=== PATIENT | male | born 1975 | race Caucasian/White ===

== ENCOUNTER → 2019-12-21 | Outpatient (CLI) | payer OTHER, SELFPAY | END | disposition home or self-care (01) | LOC: LABSPEC 10:03 | PROVIDERS: PCP Physician Assistant; Referring Provider Nurse Practitioner Family; Visit Provider Nurse Practitioner Family | DX: R05 Cough (principal); R50.9 Fever, unspecified; R53.83 Other fatigue; M79.10 Myalgia, unspecified site; Z20.828 Contact with and (suspected) exposure to other viral communicable diseases | CPT/HCPCS: 87635; 87804; 94799; G2023; U0004 ==

== ENCOUNTER → 2019-12-23 15:48 | Outpatient (CLI) | payer OTHER, SELFPAY ==
[2014-02-22 08:21] VITALS: BMI 29.4
--- NOTE | 2019-12-23 15:51 | RAD_ITS ---
STUDY: X-RAY CHEST REASON FOR EXAM: Male, 44 years old. Fatigue -- temp, went away 2 days ago -- cough x 3 days -- sob on exertion TECHNIQUE: PA and lateral views of the chest. COMPARISON: None. FINDINGS: Cardiac silhouette unremarkable. Pulmonary vascularity unremarkable. Aorta unremarkable. Right upper lobe consolidation. No pleural effusions. Upper abdomen unremarkable. Osseous structures intact. No pneumothorax. RAD/Chest PA and Lateral IMPRESSION: Right upper lobe pneumonia. Electronically Signed: Misha Sawyer, at 17:04 EDT Tel , Service support ,
== END ==
PROVIDERS: PCP Physician Assistant; Referring Provider Physician Assistant; Visit Provider Physician Assistant
DX: J18.9 Pneumonia, unspecified organism (principal)
CPT/HCPCS: 71046

== ENCOUNTER → 2021-06-23 | Outpatient (CLI) | payer BC, SELFPAY | END | disposition home or self-care (01) | LOC: LABSPEC 11:18 | PROVIDERS: PCP Physician Assistant; Referring Provider Physician Assistant Surgical; Visit Provider Physician Assistant Surgical | DX: U07.1 COVID-19 (principal) | CPT/HCPCS: 87635; U0005; U0003 ==

== ENCOUNTER → 2022-05-08 | Outpatient (CLI) | payer OTHER, SELFPAY ==
--- NOTE | 2022-05-08 09:02 | RAD_ITS ---
STUDY: X-RAY - LEFT KNEE REASON FOR EXAM: Male, 47 years old. KNEE GIVES OUT TECHNIQUE: 3 view(s) of the knee. COMPARISON: None. FINDINGS: Normal visualized distal femur. Normal visualized proximal tibia and fibula. Normal proximal tibiofibular articulation. There is mild degenerative arthrosis of the medial femorotibial compartment. Normal lateral femorotibial compartment. Normal patellofemoral articulation. Small joint effusion. RAD/Knee 3 Views IMPRESSION: Degenerative arthrosis. Small joint effusion. Electronically Signed: Michele Solis MD at 15:14 EDT ,
== END | disposition home or self-care (01) ==
LOC: MTRAD 09:00
PROVIDERS: PCP Family Medicine; Referring Provider Family Medicine; Visit Provider Family Medicine
DX: M17.12 Unilateral primary osteoarthritis, left knee (principal); M25.362 Other instability, left knee
CPT/HCPCS: 73562

== ENCOUNTER → 2022-05-11 | Outpatient (CLI) | payer OTHER, SELFPAY ==
[2022-05-11 10:04] LABS: Absolute Lymphocyte Count 1.87 X10^3/uL (0.83-4.51); Absolute Neutrophil Count 4.2 X10^3/uL (2.0-7.7); Basophil# 0.04 X10^3/uL; Basophil% 0.6 % (0-1); Eosinophil# 0.14 X10^3/uL; Hematocrit 42.5 % (40-54); Hemoglobin 14.5 g/dL (13.0-16.5); Lymphocyte # 1.87 X10^3/ul (0.83-4.51); Lymphocyte % 26.8 % (19-41); Mean Corp Hgb Conc 34.1 g/dL (32-36); Mean Corpuscular Hgb 30.6 pg (27.0-32.0); Mean Corpuscular Volume 89.7 fL (80-94); Mean Platelet Vol. 9.2 fl (6.2-12.0); Monocyte# 0.71 X10^3/uL; Monocyte% 10.2 % (0-10); NRBC Flagged by Analyzer 0 % (0-5); Platelet Count 272 K/mm3 (150-450); RBC Distribution Width CV 12.6 % (11.6-14.6); RBC Distribution Width SD 41.6 fl (35.1-43.9); Red Blood Count 4.74 M/mm3 (4.6-6.2)
[2022-05-11 10:39] LABS: ALB/GLOB Ratio 0.8 RATIO (0.9-2.4); AST(SGOT) 19 U/L (15-37); Alanine Aminotransfer ALT/SGPT 38 U/L (16-61); Albumin, Serum 3.2 g/dL (3.2-5.0); Alkaline Phosphatase 116 U/L (45-117); Anion Gap 7 (5-15); BUN 16 mg/dL (7-18); BUN/Creat Ratio 16.1 RATIO (10-20); Calcium,Total 8.9 mg/dL (8.5-10.1); Chloride 108 mmol/L (98-107); Cholesterol 188 mg/dL (200); Creatinine, Serum 0.99 mg/dL (0.70-1.30); EST Glomerular Filtration Rate 86 mL/min (>60); Est Glom Filt Rate - Afr Amer 104 mL/min (>60); Globulin 3.9 g/dL (2.2-4.2); Glucose 121 mg/dL (74-106); High Density Lipoprotein 42 mg/dL; Potassium 4.1 mmol/L (3.5-5.1); Protein, Total 7.1 g/dL (6.4-8.2); Sodium Level 140 mmol/L (136-145); Thyroid Stim Hormone (TSH) 3.12 uIU/mL (0.358-3.74); Triglycerides 130 mg/dL; Very Low Density Lipoprotein 26 mg/dL (5-40)
[2022-05-11 13:04] LABS: Hemoglobin A1c 5.3 % (3.8-5.6)
== END | disposition home or self-care (01) ==
LOC: MTLAB 08:06
PROVIDERS: PCP Family Medicine; Referring Provider Family Medicine; Visit Provider Family Medicine
DX: Z00.00 Encounter for general adult medical examination without abnormal findings (principal)
CPT/HCPCS: 36415; 80053; 80061; 83036; 84443; 85025

== ENCOUNTER → 2022-06-25 | Outpatient (CLI) | payer OTHER, SELFPAY ==
--- NOTE | 2022-06-25 16:35 | MRI_ITS ---
EXAM: MR LEFT LOWER EXTREMITY WITHOUT INTRAVENOUS CONTRAST, KNEE CLINICAL INDICATION: painful giving out TECHNIQUE: Multiplanar and multisequence MR images of the left knee without intravenous contrast. This report was created using [employer] report generation technology. COMPARISON: None. FINDINGS: BONES/JOINTS: No evidence of recent fracture. EXTENSOR MECHANISM: Extensor mechanism is intact. MEDIAL MENISCUS: Longitudinal horizontal tearing of the posterior horn, anterior, and body segment of the medial meniscus. Lateral meniscus is intact. LATERAL MENISCUS: See above. MEDIAL CAPSULE/SUPPORTING STRUCTURES: Mild thickening of the proximal medial collateral ligament, injury related. LATERAL CAPSULE/SUPPORTING STRUCTURES: Unremarkable. Lateral collateral ligamentous complex, inclusive of the popliteal tendon, are intact. ANTERIOR CRUCIATE LIGAMENT: Cruciate ligaments are intact. POSTERIOR CRUCIATE LIGAMENT: See above. MUSCLES: No muscle abnormalities. CARTILAGE: See below. FLUID: Moderate suprapatellar joint effusion without significant synovitis or intra-articular ossific bodies. Focal full thickness chondral fissure at the central weightbearing portion of the medial femoral condyle with adjacent subchondral bone marrow edema. Tiny godwin''s cyst. OTHER SOFT TISSUES: See above. OTHER FINDINGS: Medial and lateral supporting structures are otherwise intact. Neurovascular structures are unremarkable. MRI/Lower Ext Joint Only (Routine) IMPRESSION: 1. Longitudinal horizontal tearing of the posterior horn, anterior, and body segment of the medial meniscus. 2. Focal full thickness chondral fissure at the central weightbearing portion of the medial femoral condyle with adjacent subchondral bone marrow edema. 3. Thickening of the proximal medial collateral ligament from a previous injury. Electronically Signed: Carlos Christianson MD at 2:26 EDT ,
== END | disposition home or self-care (01) ==
PROVIDERS: PCP Family Medicine; Visit Provider Orthopaedic Surgery
DX: S83.242A Other tear of medial meniscus, current injury, left knee, initial encounter (principal); X58.XXXA Exposure to other specified factors, initial encounter; M25.362 Other instability, left knee
CPT/HCPCS: 73721

== ENCOUNTER 2022-08-07 09:30 | Day surgery (SDC) | payer OTHER, SELFPAY ==
[2022-08-07 10:16] VITALS: BP 126/82; PULSE 91; RESP 16; TEMP 36.4; O2SAT 100; BMI 37.4
--- NOTE | 2022-08-07 11:10 | HP.PCM_ITS ---
History and Physical Date of Admission: 08/07/22 [facility] [address] [place] [address] OFFICE VISIT Date of Service:? 07/06/22 MR#: [id number] Acct: [id number] Name:AVELINO BRIGHT Rep #: [id number] : 1975 ? ? Provider: Dr. Emerson Geiger DO Age/Sex:? 47/M ? ? Location[place] [facility] [place] Status: Signed Intake Intake Visit Reasons:?LEFT KNEE Chief Complaint: left knee Accompanied by: Self Is patient in pain?: Yes Pain scale (1-10): 5 Allergies No Known Allergies Allergy (Verified 12/23/19 16:16) Medications ibuprofen 100 mg tablet (Advil) 200 mg PO Q6H 12/23/19 [History Confirmed 07/06/22] PFSH Medical History?(Updated 07/06/22 @ 10:[address] Emerson Geiger, ) Back pain Fatigue fever Headache Hx of basal cell carcinoma mcl surgery Neck pain SOB (shortness of breath) Family History?(Updated 12/23/19 @ 16:17 by Fransisco Estrada) Other Myocardial infarction Social History?(Updated 12/23/19 @ 16:17 by Fransisco Estrada) Smoking Status:? Unknown if ever smoked alcohol intake:? current alcohol intake frequency: a few times a week HPI LEFT KNEE Details: Parts of this documentation were recorded by a scribe, this documentation accurately reflects the service provided and the decisions made by me, Dr. Emerson Geiger DO 07/06/22 [id number]. AVELINO ANDREA is a 47 year old M here today for? F/U on MRI of the left knee. He states that since he was in here his knee has not given out on him, which he was having much of previously. He states that the pain has now been a constant achiness. The pain is starting to affect his sleep. He has a generalized anterior knee pain. He does take Advil which dulls the pain but does not take the pain away completely. Pain is increased with stairs. Ortho Exam General General: Yes no acute distress Neurologic: Yes alert and Yes oriented x3 Psychologic: Yes reasonable and appropriate Right Knee Patella Translation: 1 Left Knee Skin/Wound: No ecchymosis, No erythema and No swelling Homans Sign: No Knee ROM: No ROM-Extension -20 to 0 (lacking 4) and No ROM-Flexion 0-140 (120) Examination: Yes med jt line tenderness, No Lat jt line tenderness and Yes Janice's Test Stability: NML: Anterior Drawer, NML: Posterior Drawer and NML: Varus 0 and 1+: Valgus 0 and 1+: Valgus 30 Patella Translation: 1 Supplemental Info 09/14/2021 MRI left knee: Focal full-thickness chondral loss at the central weightbearing portion of the medial femoral condyle with adjacent subchondral bone marrow edema, longitudinal horizontal tearing of the posterior horn anterior and body of the medial meniscus 06/13/2022 sunrise views left knee: mild PF arthrosis 05/08/2022 x-ray left knee: No sunrise view, moderate medial joint space narrowing Coding Level of Care Code Off vis,est,level 3 Diagnoses Left knee DJD? M17.12 Medial meniscus tear? S83.249A Assessment and Plan Assessment and Plan (1) Left knee DJD: ?Status:?Acute (2) Medial meniscus tear: ?Status:?Acute Plan Patient educated that the MRI shows a complex tear of the medial meniscus along with a full thickness fissure of the medial femoral condyle. This means the the cartilage is missing over this WB area of the femoral condyle. Treatment options are do nothing or steroid injection or bracing or PT and the surgical options are left knee arthroscopic partial medial meniscectomy and chondroplasty smoothing the cartilage over the medial knee or the other surgical option is a partial medial knee replacement. Risk with arthroscopy is this not being effective and he may end up needing the partial knee replacement. Reviewed the pre-operative plans with the patient. Risks and benefits of the procedure were fully explained, including but not limited to infection, neurovascular injury, continued pain, arthritis, stiffness, need for further surgery, re-injury, DVT, PE, general risks of anesthesia, and loss of limb or life. The patient unde rstands all the risks. There is also a risk that he does the partial knee replacement and down the road in he may end up needing a revision to a TKA. Recovery for the arthroscopy is less. He wishes to proceed with the left knee arthroscopy at this time. and possibly look at injection options after we clean things up if needed. Follow up 2 weeks post op or sooner if pain, swelling, numbness or associated symptoms, or concerns develop.? All questions answered. Patient in agreement of plan. 07/06/22 1001 <Electronically signed by Emerson Geiger DO> Date Emerson Laraigndivine Signature: Date (if applicable) ? CC:? Nenita Oliva, DO ~ I have examined the patient and the H&P has been reviewed. There are no clinical changes since date of exam.
[2022-08-07] MEDS: Epinephrine (1 mg/ml) 1 MG/ML VIAL (11:36)
[2022-08-07] MEDS: Bupiv/Epi 0.5% Mpf 30 ML Vial (11:36)
[2022-08-07] MEDS: MethylPREDNISolone Acetate 40 MG/ML Vial IM (12:00)
[2022-08-07] MEDS: Bupivacaine Mpf 0.5% 30 ML VIAL (12:00)
--- NOTE | 2022-08-07 12:04 | OP.PCM_ITS ---
Operative Report Date of Procedure: 08/07/22 Preop diagnosis: Left knee complex medial meniscal tear, DJD Postoperative diagnosis: Complex tear posterior horn anterior horn medial meniscus grade 4 cartilage wear periphery of the medial tibial plateau and the medial femoral condyle grade 2 lateral tibial plateau small area grade 3 patell ar apex and some softening of the trochlea Procedure: Left knee arthroscopic partial medial meniscectomy Anesthesia: General Estimated blood loss: 5 mL Tourniquet time: 29 minutes 300 mmHg Complications: none Indication for procedure: 47-year-old male ongoing knee pain mechanical symptoms MRI evidence of medial meniscus tear DJD the patient did wish to proceed with an elective arthroscopic surgery to attempt to alleviate the symptoms. Risk benefits and alternatives of the procedure were reviewed including risk of bleeding infection nerve artery tissue damage need for further surgery continued pain and expected postoperative course. Procedure: The patient was met in the preoperative holding area. The operative extremity was identified by both patient and physician and family and marked. Patient was brought back to the operating room on a wheeled cart and transferred to the operating table in the supine position. Anesthesia was started. A well- padded tourniquet was placed on the operative extremity. A lower extremity leg wang was secured to the operative extremity. The contralateral extremity was well-padded and the end of the bed was flexed to 90 degrees. The patient was prepped and draped in the usual sterile fashion. A timeout was called to ensure the proper patient, procedure, and extremity were being contemplated. 0.5% Marcaine with epinephrine was injected into the planned incisional areas under the skin only. An Esmarch was used to exsanguinate the extremity and the tourniquet was inflated. An 11 blade scalpel was used to make a stab incision in the anterior lateral portal. The arthroscope was inserted into the intercondylar notch and inflow and outflow tubes were attached. Arthroscopic visualization began. The medial compartment was entered. An 18-gauge spinal needle was used to establish the placement for anterior medial portal. An 11 blade scalpel was used to make a stab incision. Blunt probe was inserted followed by a meniscal probe. Grade 4 cartilage wear of the medial femoral condyle and periphery of the medial tibial plateau there was loose bodies which were debrided and removed there was also noted to be complex tearing of the anterior posterior horn the medial meniscus which were debrided with a shaver the ACL was found to be intact. The lateral compartment was entered there is no meniscal pathology however there was softening of the lateral tibial plateau upon probing the probe immediately sank into the cartilage The arthroscope was switched to the medial portal to complete the procedure. The medial and lateral gutters were inspected and were free of loose bodies. The patellofemoral joint was inspected grade 3 cartilage wear crabmeat appearance of the apex of the patella. There was good patellar tracking. Softening was noted upon probing of the trochlea the knee was thoroughly irrigated and drained. An intra-articular injection with 5 cc 0.5% Marcaine plain and 40 mg of Depo-Medrol was injected i ntra-articularly. The arthroscope was removed the portals were closed with 3-0 nylon arthroscopic stitches. Followed by Xeroform 4 x 4's ABDs web roll and an Jamel wrap. The tourniquet was let down and the drapes were removed. All counts were correct. The patient was brought back to the PACU in stable condition.
--- NOTE | 2022-08-07 12:07 | DCINST_ITS ---
Discharge Instructions Dressing / Incision Call your doctor if you observe: Shortness of breath and Chest pain Additional Dressing/Incision Instructions:: Ice and elevate next 72 hours .keep dressing on clean and dry for 48 hours then may remove begin showering daily but do not submerge in tub or pool. After shower may apply Band-Aids . Encourage knee range of motion weightbearing as tolerated, use crutches until confident in knee then may discontinue. May supplement pain control with OTC ibuprofen and OTC Tylenol to minimize narcotic use, recommend 600 mg ibuprofen 3 times a day for the next 10 days no strenuous activity. When not ambulating keep iced and elevated next 72 hours. Do not mix pain medication with recreational drugs or alcohol only take as prescribed can be addictive and abusive, call with any questions or concerns. Follow Up Care Please Follow Up With: Emerson Geiger DO When: 2 weeks Test Results: Test results from this visit will be discussed in further detail at your follow- up appointment, if applicable. Discharge Plan Admission Attending Provider: Emerson Geiger Primary Care Provider: Nenita Oliva Discharge Orders/Prescriptions Prescriptions: New oxycodone 5 mg tablet 5 mg PO Q4H PRN (Reason: pain) 5 Days Qty: 30 0RF No Action ibuprofen [Advil] 100 mg tablet 200 mg PO Q6H Referrals / Follow Up: Nenita Oliva DO [Primary Care Provider] - Disposition Disposition (needs filled in before D/C Order can be placed): Home, Self Care
[2022-08-07 12:15] VITALS: BP 123/90; BP 126/82; PULSE 101; RESP 16; TEMP 35.9; O2SAT 96
[2022-08-07 12:30] VITALS: BP 122/85; BP 126/82; PULSE 80; RESP 16; O2SAT 99
[2022-08-07 12:45] VITALS: BP 117/77; BP 126/82; PULSE 61; RESP 16; O2SAT 100
[2022-08-07 12:57] VITALS: BP 126/82; BP 134/98; PULSE 72; RESP 16; TEMP 36.1; O2SAT 100
[2022-08-07 13:40] VITALS: BP 126/82
== END 2022-08-07 13:45 | disposition home or self-care (01) ==
LOC: SDC 12:10 → AC 12:38
PROVIDERS: PCP Family Medicine; Referring Provider Orthopaedic Surgery; Visit Provider Orthopaedic Surgery
PROC: (CPT 29870; principal; 2022-08-07 10:40)
DX: S83.232A Complex tear of medial meniscus, current injury, left knee, initial encounter (principal); M17.12 Unilateral primary osteoarthritis, left knee; X58.XXXA Exposure to other specified factors, initial encounter
CPT/HCPCS: 29881; 01400; J7120; J2405

== ENCOUNTER → 2024-03-25 | Outpatient (CLI) | payer OTHER, SELFPAY ==
--- NOTE | 2024-03-25 17:30 | RAD_ITS ---
STUDY: X-RAY - LEFT KNEE REASON FOR EXAM: Male, 49 years old. left knee TECHNIQUE: 3 view(s) of the knee. COMPARISON: 05/08/2022. FINDINGS: Normal visualized distal femur. Normal visualized proximal tibia and fibula. Normal proximal tibiofibular articulation. There is no demonstrated fracture. There is moderate degenerative arthrosis of the medial femorotibial compartment with moderate joint space narrowing. Normal lateral femorotibial compartment. Normal patellofemoral articulation. There is no demonstrated joint effusion. Tibia subluxed lateral, also present previously. The soft tissue structures are unremarkable. RAD/Knee 4 or More Views IMPRESSION: No acute abnormality. No change since 05/08/2022. 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 Electronically Signed: Hoang Salguero MD at 22:59 EDT ,
== END | disposition home or self-care (01) ==
PROVIDERS: PCP Family Medicine; Referring Provider Family Medicine; Visit Provider Family Medicine
DX: M25.562 Pain in left knee (principal)
CPT/HCPCS: 73564

== ENCOUNTER → 2024-05-26 | Outpatient (CLI) | payer OTHER, SELFPAY ==
[2024-05-26 10:07] LABS: Absolute Lymphocyte Count 1.95 X10^3/uL (0.83-4.51); Absolute Neutrophil Count 4.7 X10^3/uL (2.0-7.7); Basophil# 0.04 X10^3/uL; Basophil% 0.5 % (0-1); Eosinophil# 0.11 X10^3/uL; Eosinophils% 1.5 % (0-5); Hematocrit 44.1 % (40-54); Hemoglobin 14.8 g/dL (13.0-16.5); Lymphocyte # 1.95 X10^3/ul (0.83-4.51); Lymphocyte % 26.4 % (19-41); Mean Corp Hgb Conc 33.6 g/dL (32-36); Mean Corpuscular Hgb 29.4 pg (27.0-32.0); Mean Corpuscular Volume 87.5 fL (80-94); Mean Platelet Vol. 9.3 fl (6.2-12.0); Monocyte# 0.59 X10^3/uL; NRBC Flagged by Analyzer 0 % (0-5); Neutrophil # 4.68 X10^3/uL (2.7-7.7); Neutrophil % 63.3 % (47-70); Platelet Count 276 K/mm3 (150-450); RBC Distribution Width CV 13.2 % (11.6-14.6); RBC Distribution Width SD 41.3 fl (35.1-43.9); Red Blood Count 5.04 M/mm3 (4.6-6.2); White Blood Count 7.4 K/mm3 (4.4-11.0)
[2024-05-26 10:19] LABS: Vitamin D,25 Hydroxy 46.1 ng/mL
[2024-05-26 10:45] LABS: ALB/GLOB Ratio 0.9 RATIO (0.9-2.4); AST(SGOT) 16 U/L (15-37); Alanine Aminotransfer ALT/SGPT 34 U/L (16-61); Albumin, Serum 3.3 g/dL (3.2-5.0); Alkaline Phosphatase 126 U/L (45-117); Anion Gap 8 (5-15); BUN 14 mg/dL (7-18); BUN/Creat Ratio 14.2 RATIO (10-20); Calcium,Total 9.2 mg/dL (8.5-10.1); Chloride 108 mmol/L (98-107); Cholesterol 195 mg/dL (200); Creatinine, Serum 0.99 mg/dL (0.70-1.30); EST Glomerular Filtration Rate 86 mL/min (>60); Est Glom Filt Rate - Afr Amer 104 mL/min (>60); Globulin 3.8 g/dL (2.2-4.2); Glucose 129 mg/dL (74-106); High Density Lipoprotein 42 mg/dL; Potassium 3.7 mmol/L (3.5-5.1); Protein, Total 7.1 g/dL (6.4-8.2); Sodium Level 138 mmol/L (136-145); Triglycerides 147 mg/dL; Very Low Density Lipoprotein 29 mg/dL (5-40)
== END | disposition home or self-care (01) ==
LOC: MFPLAB 08:24
PROVIDERS: PCP Family Medicine; Visit Provider Family Medicine
DX: Z00.00 Encounter for general adult medical examination without abnormal findings (principal); N52.9 Male erectile dysfunction, unspecified; Z13.1 Encounter for screening for diabetes mellitus; Z13.220 Encounter for screening for lipoid disorders
CPT/HCPCS: 36415; 80053; 80061; 82306; 84403; 84443; 85025

== ENCOUNTER → 2024-06-02 | Outpatient (CLI) | payer OTHER, SELFPAY ==
[2024-06-02 10:50] LABS: Hemoglobin A1c 5.3 % (3.8-5.6)
== END | disposition home or self-care (01) ==
LOC: MFPLAB 08:18
PROVIDERS: PCP Family Medicine; Referring Provider Family Medicine; Visit Provider Family Medicine
DX: Z13.1 Encounter for screening for diabetes mellitus (principal)
CPT/HCPCS: 36415; 83036

== ENCOUNTER → 2024-10-23 | Outpatient (CLI) | payer OTHER, SELFPAY ==
--- NOTE | 2024-10-23 10:10 | RAD_ITS ---
PROCEDURE: CHEST PA AND LATERAL REASON FOR EXAM: Fatigue. Cold symptoms for 2 weeks. TECHNIQUE: Frontal and lateral views of the chest. COMPARISON: 12/23/2019. FINDINGS: Lungs: Lungs clear of pneumonia and congestion. Pleura: No pleural effusions, thickening, or pneumothorax. Heart: Normal in size and configuration. Mediastinum/Filomena: Unremarkable. Great vessels: Unremarkable. Bones/soft tissues: Unremarkable. RAD/Chest PA and Lateral IMPRESSION: No active cardiopulmonary disease. Reading Location: [place] [address]
[2024-10-23 10:25] LABS: Absolute Lymphocyte Count 2.03 X10^3/uL (0.83-4.51); Basophil# 0.04 X10^3/uL; Basophil% 0.5 % (0-1); Eosinophil# 0.11 X10^3/uL; Eosinophils% 1.4 % (0-5); Hemoglobin 14.5 g/dL (13.0-16.5); Lymphocyte # 2.03 X10^3/ul (0.83-4.51); Lymphocyte % 25.2 % (19-41); Mean Corp Hgb Conc 34.5 g/dL (32-36); Mean Corpuscular Hgb 29.8 pg (27.0-32.0); Mean Corpuscular Volume 86.4 fL (80-94); Monocyte# 0.79 X10^3/uL; Monocyte% 9.8 % (0-10); NRBC Flagged by Analyzer 0 % (0-5); Neutrophil # 5.01 X10^3/uL (2.7-7.7); Neutrophil % 62.1 % (47-70); Platelet Count 286 K/mm3 (150-450); RBC Distribution Width CV 13.2 % (11.6-14.6); RBC Distribution Width SD 40.3 fl (35.1-43.9); Red Blood Count 4.86 M/mm3 (4.6-6.2); White Blood Count 8.1 K/mm3 (4.4-11.0)
[2024-10-23 11:02] LABS: ALB/GLOB Ratio 1.3 RATIO (0.9-2.4); AST(SGOT) 23 U/L (<=37); Alanine Aminotransfer ALT/SGPT 35 U/L (<=46); Albumin, Serum 3.8 g/dL (3.5-5.0); Alkaline Phosphatase 123 U/L (40-129); Anion Gap 12 (5-15); BUN 15 mg/dL (4-19); BUN/Creat Ratio 17.8 RATIO (10-20); Calcium 8.9 mg/dL (7.6-11.0); Carbon Dioxide 20.2 mmol/L (22.0-29.0); Chloride 106 mmol/L (96-108); Creatinine, Serum 0.83 mg/dL (0.70-1.20); EST Glomerular Filtration Rate 107 (>60); Glucose 124 mg/dL (70-99); Protein, Total 6.7 g/dL (5.9-8.4); Sodium Level 138 mmol/L (133-145); Total Bilirubin 0.41 mg/dL (0.00-1.30)
== END | disposition home or self-care (01) ==
PROVIDERS: PCP Family Medicine; Referring Provider Family Medicine; Visit Provider Family Medicine
DX: J06.9 Acute upper respiratory infection, unspecified (principal)
CPT/HCPCS: 36415; 71046; 80053; 84443; 85025

== ENCOUNTER 2024-11-20 09:46 | Day surgery (SDC) | payer OTHER, SELFPAY ==
[2024-11-20 10:11] VITALS: BP 142/74; PULSE 88; RESP 12; TEMP 36.4; O2SAT 98; BMI 37.5
--- NOTE | 2024-11-20 10:27 | PCM.HP.BLA ---
History and Physical Date of Admission: 11/20/24 The patient is examined and there are no changes to the H&P of 10/28/24. Informed consent is obtained for excision lesion left and right taoism and right lower leg. He is marked in the pre-op holding area. Assessment & Plan Assessment/Plan (1) Neoplasm of uncertain behavior of skin of lower leg: (2) Neoplasm of uncertain behavior of skin of face: PLAN: Plan For excision neoplasm right and left taoism and right lower leg.
[2024-11-20 10:37] VITALS: BP 103/57; BP 96/84; O2SAT 100; O2SAT 96; O2SAT 97; O2SAT 98; O2SAT 99
--- NOTE | 2024-11-20 10:40 | LES_PTH ---
PATIENT: AVELINO HUERTA LOC: [facility] – [place] U#:[id number] AGE/SX: 49/M ROOM: RE11/20/[address]: Dr. Yanet Estrada MD : 1975 BED: DIS: 11/20/2024 SPEC #: [id number] RECD: 11/20/24 13:37 STATUS: DIAMOND ANIRUDH #: [id number] MELANIE: 11/20/24 10:[address]: Yanet Estrada DEPT: SURGICAL PATHOLOGY RECD BY: Livan Watt ENTERED: 11/20/24 13:37 SP TYPE: Lesion OTHR DR: Efrem Quinn MD Tissues: A - Skin of face, NOS B - Skin of face, NOS C - Skin of leg, NOS Procedures: Surgery Specimen Level IV HEADER OPERATION: Excision lesion left anabaptism (1.5cm), right anabaptism (1.5) PRE-OP DIAGNOSIS: Neoplasm of uncertain behavior of skin of lower leg, neoplasm of uncertain behavior of skin of face, neoplasm of uncertain behavior of skin of lower leg TISSUE SUBMITTED: Lesion left anabaptism, lesion right anabaptism, lesion right leg MICROSCOPIC DIAGNOSIS A. SKIN LEFT ORIENTAL ORTHODOX, LESION, EXCISION: * BASAL CELL CARCINOMA, NODULAR TYPE, FOCALLY ULCERATED, MARGINS FREE. B. SKIN RIGHT ORIENTAL ORTHODOX, LESION, EXCISION: * BASAL CELL CARCINOMA, NODULAR TYPE, FOCALLY ULCERATED, MARGINS FREE. C. SKIN RIGHT LEG, LESION, EXCISION:- BASAL CELL CARCINOMA, SUPERFICIAL TYPE, MARGINS FREE. MICROSCOPIC DESCRIPTION Slides are reviewed. GROSS DESCRIPTION Specimen A-received in formalin labeled, Avelino Huerta, and designated lesion left anabaptism, is an unoriented elliptical excision of skin that measures 1.6 x 1.5 x 0.3 cm. Central on the skin is a slightly raised focus measuring 1.1 x 1.0 cm and is 0.2 cm from the opposing skin margins. The margin is inked black. Specimen is totally submitted as follows:Cassette Summary:[id number] sectionsA3-opposing shaved tips Specimen B-received in formalin labeled, Avelino Huerta, and designated lesion right anabaptism, is an unoriented circular excision of skin that measures 1.4 x 1.4 x 0.3 cm. Central on the skin is a granular raised focus measuring 0.9 x 0.7 cm and is 0.2 cm from the closest skin margin. The margin is inked black. Specimen is entirely submitted as follows:Cassette Summary:[id number] sectionsB3-opposing shaved ends Specimen C-received in formalin labeled, Avelino Huerta, and designated lesion right leg, is an unoriented elliptical excision of skin that measures 2.0 x 1.4 x 0.3 cm. Eccentric on the skin surface is a granular focus measuring 1.3 x 1.2 cm and is 0.1 cm from the closest skin margin. The margin is inked black. Specimen is entirely stated as follows:Cassette Summary:[id number] sectionsC3-opposing shaved tips 11/20/2024 CPT:[id number]
[2024-11-20] MEDS: Povidone Iodine 30 ML Opthalmic Sol 1 DRP (10:41)
[2024-11-20] MEDS: Lidocaine 1% /Epi 1:100 9 ML, Sodium Bicarbonate 1 MEQ OPERA.SITE (10:44)
[2024-11-20] MEDS: Bacitracin 500 UNITS/GM PACKET (11:36)
--- NOTE | 2024-11-20 12:12 | DCINST_ITS ---
Discharge Instructions Dressing / Incision Additional Dressing/Incision Instructions:: Keep your back elevated (recliner position) for the next 3 nights to reduce swelling and bruising on the facial sites. Keep your right leg elevated is much as you can to decrease swelling and tightness. Keep the butterfly tapes on the right latter-day dry??do not remove until seen in the office. Apply antibiotic ointment (like Neosporin, bacitracin, or triple antibiotic ointment) to the left latter-day site once a day. Keep the wrap in place on your right leg intact until seen in the office. You may rewrap this if it becomes too tight. Take the oral antibiotic (Keflex) 2 times a day until finished. Follow Up Care Please Follow Up With: Yanet Estrada MD When: 1 to 2 weeks Test Results: Test results from this visit will be discussed in further detail at your follow- up appointment, if applicable. Discharge Plan Admission Attending Provider: Yanet Estrada Primary Care Provider: Efrem Quinn Instructions Print Language: French Discharge Orders/Prescriptions Prescriptions: New cephalexin 500 mg capsule 500 mg PO BID 7 Days Qty: 14 0RF Referrals / Follow Up: Efrem Quinn MD [Primary Care Provider] - Disposition Disposition (needs filled in before D/C Order can be placed): Home, Self Care
--- NOTE | 2024-11-20 12:15 | OP.PCM_ITS ---
Problems Associated Problem List Diagnoses (1) Neoplasm of uncertain behavior of skin of lower leg: (2) Neoplasm of uncertain behavior of skin of face: Operative Report (Standard) Operative Information Date of Procedure: 11/20/24 Pre-Operative Diagnosis: Neoplasm of right hoahaoism, left hoahaoism, and right lower leg of uncertain behavior Post-Operative Diagnosis: Same Surgery/Procedure Performed: Excision neoplasm right hoahaoism (2.5 cm) with intermediate closure; Excision neoplasm left hoahaoism (3.0 cm) with intermediate closure; Excision neoplasm right lower leg (3.5 cm) air bag buffer: No Type of Anesthesia: Local RN Documented Start/Stop Times: Operation Date: 11/20/24 10:40 Case Time Into Pre-Op 11/20/24 10:00 Out of Pre-Op 11/20/24 10:21 Into Room 11/20/24 10:32 Procedure Start 11/20/24 10:44 Procedure End 11/20/24 12:10 Out of Room 11/20/24 12:11 Procedure Start Time: 10:44 Procedure Stop Time: 12:10 Select all DRAINS/GRAFTS/IMPLANTS that apply: None Estimated Blood Loss: Minimal Specimen collected: Yes Description of specimen(s) removed: Neoplasm of right left hoahaoism and right lower leg Description of surgery: The patient presents with new and changing neoplasms of the right hoahaoism, left hoahaoism, and right lower extremity. He presents for excision with submission for pathologic valuation. He is aware the potential need for further surgery depending on the resulting pathology. The procedure was reviewed with him including the potential for scar tissue and an informed consent is obtained. He is marked in the preop holding area prior to surgery. The patient is brought to the operating room and placed on the operating room table in the supine position. The right and left hoahaoism are prepped and draped in the usual sterile fashion. We initially began with injecting both sites with 1% Xylocaine with epinephrine buffered with sodium bicarb. Following this, both sites are elliptically excised and passed off as separate specimens to be sent to pathology. Hemostasis is controlled with cautery. The right hoahaoism is closed with Monocryl suture in the subcutaneous tissue and dermis. Skin edges are approximated with a running subcuticular Monocryl suture and further reinforcement of the closure is done with a running Prolene suture. Dermabond and Steri-Strips are placed on the site. We then directed our attention to this lesion of the left hoahaoism. After adequate local anesthetic, the site is excised and passed off the operative field to be sent to pathology. Hemostasis is controlled with cautery. The site is then closed with Monocryl sutures in the subcutaneous tissue and dermis. Skin edges are approximated with a running chromic suture. Antibiotic ointment is placed on the site. We then directed our attention to the lesion of the right lower extremity. The patient is repositioned into a slight left lateral decubitus position. The right posterior lateral lower leg is prepped and draped in the usual sterile fashion. 1% Xylocaine with epinephrine buffered with sodium bicarb is used for local anesthetic. The site is then excised and passed off the operative field to be sent to pathology. Hemostasis is controlled with cautery. The site is then closed with interrupted silk suture. Further refinement the closure is performed with a chromic suture. Xeroform, gauze, and a Coban wrap are used to dress the site. He tolerated the procedure well was taken to the recovery area in an awake and stable condition. Needle and sponge counts are correct. Surgical Findings: As above Complications Complications: No Admit VTE Documentation VTE Mechan Device Prophylaxis: None Reason prophylaxis not ordered: Treatment Not Indicated
[2024-11-20 12:33] VITALS: BP 127/80; BP 142/74; PULSE 80; RESP 16; TEMP 36.6; O2SAT 100
== END 2024-11-20 12:36 | disposition home or self-care (01) ==
LOC: SDC 09:51 → AC 09:52
PROVIDERS: PCP Family Medicine; Referring Provider Plastic Surgery; Visit Provider Plastic Surgery
PROC: (CPT 11446; principal; 2024-11-20 10:30)
DX: D48.5 Neoplasm of uncertain behavior of skin (principal)
CPT/HCPCS: 11446; 11404; 88305